=== PATIENT | male | born 1980 | race Caucasian/White ===

== ENCOUNTER 2016-09-14 19:43 | Emergency (ER) | payer OTHER ==
[2016-09-14] MEDS ORDERED: INSULIN REGULAR HUMAN 100 UNITS/ML ML ONE ×2 (20:22→20:31)
--- NOTE | 2016-09-14 20:42 | ER PHYSICIAN DOCUMENTATION ---
Physician Documentation [facility] Name:Marcel Moreno Age:35 yrs Sex:Male :1980 Arrival Date:09/14/2016 Time:19:43 Bed1 Private MD:Physician, No ED Claudio Myrick Disposition: 09/14/16 20:27 Discharged to Home/Self Care. Impression: Diabetes Mellitus, Type I, Viral Pharyngitis. - Condition is Good. - Discharge Instructions: DIABETES, General Info, PHARYNGITIS, Viral, DIABETIC DIET. - Prescriptions for Amoxicillin 500 mg Oral Capsule - take 1 capsule by ORAL route every 8 hours for 10 days; 30 tablet. - Medical Reconciliation form form. - Follow up: Private Physician; When: As needed; Reason: If symptoms return. - Problem is new. - Symptoms are resolved. HPI: 09/14 20:10 This 35 yrs old Male presents to ER via Private Vehicle with complaints of sc Sore Throat. 20:10 The patient presents with sore throat. The patient describes throat pain as raw. Onset: ar The symptom(s)/episode began/occurred today. Severity of symptoms: At their worst the symptoms were mild. Associated signs and symptoms: The patient has no apparent associated signs or symptoms. traveling, out of insulin for pump. Historical: - Allergies: No known drug Allergies; - Home Meds: 1. Humalog Sub-Q - PMHx: Diabetes - IDDM; - PSHx: None; - Ebola Screening: : Patient negative for fever greater than or equal to 101.5 degrees Fahrenheit, and additional compatible Ebola Virus Disease symptoms. Patient denies exposure to infectious person. Patient denies travel to an Ebola-affected area in the 21 days before illness onset. No symptoms or risks identified at this time. . - Immunization history: Flu Vaccine < 1 year. - Social history: Smoking status: Patient states was never smoker of tobacco. Patient/guardian denies using alcohol, street drugs, IV drugs, marijuana. ROS: 20:11 Constitutional: Negative for fever, chills, and weight loss. sc Eyes: Negative for injury, pain, redness, and discharge. Neck: Negative for injury, pain, and swelling. Cardiovascular: Negative for chest pain, palpitations, and edema. Respiratory: Negative for shortness of breath, cough, wheezing, and pleuritic chest pain. Abdomen/GI: Negative for abdominal pain, nausea, vomiting, diarrhea, and constipation. Back: Negative for injury and pain. MS/Extremity: Negative for injury and deformity. Skin: Negative for injury, rash, and discoloration. 20:11 Neuro: Negative for headache, weakness, numbness, tingling, and seizure. sc 20:11 ENT: Positive for sore throat. Exam: Constitutional: This is a well developed, well nourished patient who is awake, alert, and in no acute distress. Head/Face: Normocephalic, atraumatic. Eyes: Pupils equal round and reactive to light, extra-ocular motions intact. Lids and lashes normal. Conjunctiva and sclera are non-icteric and not injected. Cornea within normal limits. Periorbital areas with no swelling, redness, or edema. Neck: Trachea midline, no thyromegaly or masses palpated, and no cervical lymphadenopathy. Supple, full range of motion without nuchal rigidity, or vertebral point tenderness. No meningismus. Chest/axilla: Normal chest wall appearance and motion. Nontender with no deformity. No lesions are appreciated. Cardiovascular: Regular rate and rhythm with a normal S1 and S2. No gallops, murmurs, or rubs. Normal PMI, no JVD. No pulse deficits. Respiratory: Lungs have equal breath sounds bilaterally, clear to auscultation and percussion. No rales, rhonchi or wheezes noted. No increased work of breathing, no retractions or nasal flaring. Abdomen/GI: Soft, non-tender, with normal bowel sounds. No distension or tympany. No guarding or rebound. No evidence of tenderness throughout. Back: No spinal tenderness. No costovertebral tenderness. Full range of motion. 20:11 Skin: Warm, dry with normal turgor. Normal color with no rashes, no lesions, and no sc evidence of cellulitis. 20:11 ENT: Mouth: is normal, Oral mucosa: moist, Posterior pharynx: no acute changes, Airway: normal, erythema, is not appreciated. 20:27 Respiratory: the patient does not display signs of respiratory distress, ar Respirations: normal, Breath sounds: are normal, clear throughout. Vital Signs: 19:53 Temp 98.7; jt 20:26 BP 165 / 92; Pulse 84; Resp 18; Pulse Ox 95% on R/A; sc1 MDM: 19:48 Patient medically screened. ar 20:11 Differential diagnosis: peritonsillar abscess pharyngitis. Data reviewed: vital signs, ar nurses notes, lab test result(s), and as a result, I will continue to observe the patient. Counseling: I had a detailed discussion with the patient and/or guardian regarding: the historical points, exam findings, and any diagnostic results supporting the discharge/admit diagnosis, lab results, the need for outpatient follow up, to return to the emergency department if symptoms worsen or persist or if there are any questions or concerns that arise at home. 09/14 20:18 Order name: RAPID STREP SCRN CUL IF NEG; Complete Time: 20:22 EDMS 09/14 20:21 Interpretation: Normal. ar 09/15 06:24 Order name: THROAT FOR BETA STREP EDMS Dispensed Medications: 20:31 Drug: Insulin Regular Human 100 units; {Note: pt was given 100 units to load his pump ar1 to last until tomorrow when he can buy some more..} Route: Sub-Q; Site: abdomen; 20:33 Follow up: Response: Pharmacy closed - take home med pack ar1 Point of Care Testing: Blood Glucose: 19:53 Blood Glucose: 50 mg/dL; jt 20:40 Blood Glucose: 178 mg/dL; sc1 Ranges: Critical Glucose Levels:Adult <50 mg/dl or >400 mg/dl <40 mg/dl or >180 mg/dl Signatures: Lydia Whitney RN RN ar1 Claudio Oscar MD MD ar
--- NOTE | 2016-09-14 20:42 | ER NURSING DOCUMENTATION ---
Nurse's Notes [facility] Name:Marcel Moreno Age:35 yrs Sex:Male :1980 Arrival Date:09/14/2016 Time:19:43 Bed1 Private MD:PhysicianJacque Diagnosis:Diabetes Mellitus, Type I;Viral Pharyngitis Presentation: 09/14 19:46 Presenting complaint: Patient states: sore throat. and daughter tested positive sc1 for strep. Transition of care: patient was not received from another setting of care. 19:46 Acuity: EVELINE 4 de1 19:46 Method Of Arrival: Private Vehicle de1 Triage Assessment: 20:28 General: Appears in no apparent distress, well developed, well nourished, well groomed, de1 Behavior is cooperative, pleasant. Pain: Complains of pain in throat. Historical: - Allergies: No known drug Allergies; - Home Meds: 1. Humalog Sub-Q - PMHx: Diabetes - IDDM; - PSHx: None; - Ebola Screening: : Patient negative for fever greater than or equal to 101.5 degrees Fahrenheit, and additional compatible Ebola Virus Disease symptoms. Patient denies exposure to infectious person. Patient denies travel to an Ebola-affected area in the 21 days before illness onset. No symptoms or risks identified at this time. . - Immunization history: Flu Vaccine < 1 year. - Social history: Smoking status: Patient states was never smoker of tobacco. Patient/guardian denies using alcohol, street drugs, IV drugs, marijuana. Screenin:28 Infectious Disease Risk None. Abuse screen: Denies threats or abuse[place] [facility] [place]: 20:30 Reassessment: pt lost his insulin and is from out of town. Pt. was given 100u to load sc1 his pump to last until tomorrow when he can get more.. Vital Signs: 19:53 Temp 98.7; jt 20:26 BP 165 / 92; Pulse 84; Resp 18; Pulse Ox 95% on R/A; de1 ED Course: 19:45 Patient arrived in ED. ma1 19:45 Physician, No is Private Physician. ma1 19:46 Lydia Whitney RN is Primary Nurse. sc1 19:48 Claudio Oscar MD is Attending Physician. de 19:58 Triage completed. de1 20:28 Notified ED Physician of patient's arrival and chief complaint. Dr. Medina notified. sc1 Administered Medications: 20:31 Drug: Insulin Regular Human 100 units; {Note: pt was given 100 units to load his pump sc1 to last until tomorrow when he can buy some more..} Route: Sub-Q; Site: abdomen; 20:33 Follow up: Response: Pharmacy closed - take home med pack de1 Point of Care Testing: Blood Glucose: 19:53 Blood Glucose: 50 mg/dL; jt 20:40 Blood Glucose: 178 mg/dL; sc1 Ranges: Outcome: 20:27 Discharge ordered by . de 20:33 Discharged to home ambulatory. de1 20:33 Condition: stable 20:33 Discharge instructions given to patient, Instructed on discharge instructions, follow up and referral plans. Demonstrated understanding of instructions. 20:41 Patient left the ED. de1 Signatures: Lydia Whitney RN RN [facility] Claudio Oscar MD MD de Jasmina Blake Melissa [facility]
== END 2016-09-14 20:42 | disposition home or self-care (01) ==
LOC: ER 19:43
DX: J02.8 Acute pharyngitis due to other specified organisms (principal); E10.9 Type 1 diabetes mellitus without complications; Z96.41 Presence of insulin pump (external) (internal)
CPT/HCPCS: 86403; 87081; 96372; 99283; J1815